=== PATIENT | male | born 1935 ===

== ENCOUNTER 2021-01-09 07:09 | Outpatient (CLI) | payer OTHER ==
[~2021-01-09 07:09] MED LIST: AVALIDE 150-12.1 TA1 PO; CORDARONE I.50 MG/ML; CORDARONE I.50 MG/ML IV; PRILOSEC10 MG PO; SYNTHROID75 MCG PO; TARKA 4/2401 BOTTLE; TARKA 4/2401 BOTTLE PO; ZOCOR20 MG PO
== END 2021-01-09 07:17 | disposition home or self-care (01) ==
LOC: LAB 07:09
PROVIDERS: ATTEND Internal Medicine Hematology & Oncology
DX: D63.8 Anemia in other chronic diseases classified elsewhere (principal); R79.89 Other specified abnormal findings of blood chemistry; I10 Essential (primary) hypertension; R74.02 Elevation of levels of lactic acid dehydrogenase [LDH]; K76.89 Other specified diseases of liver; D47.2 Monoclonal gammopathy; C90.00 Multiple myeloma not having achieved remission; R71.8 Other abnormality of red blood cells; R97.0 Elevated carcinoembryonic antigen [CEA]; R97.8 Other abnormal tumor markers; R97.20 Elevated prostate specific antigen [PSA]; G47.33 Obstructive sleep apnea (adult) (pediatric)

== ENCOUNTER → 2021-05-14 06:20 | Outpatient (CLI) | payer OTHER | END | disposition home or self-care (01) | LOC: LAB 06:20 | PROVIDERS: ATTEND Internal Medicine Hematology & Oncology | DX: D50.8 Other iron deficiency anemias (principal); R79.89 Other specified abnormal findings of blood chemistry; I10 Essential (primary) hypertension; R74.02 Elevation of levels of lactic acid dehydrogenase [LDH]; K76.89 Other specified diseases of liver; D47.2 Monoclonal gammopathy; C90.00 Multiple myeloma not having achieved remission; G47.33 Obstructive sleep apnea (adult) (pediatric); E11.9 Type 2 diabetes mellitus without complications; Z12.11 Encounter for screening for malignant neoplasm of colon; E03.8 Other specified hypothyroidism; N40.0 Benign prostatic hyperplasia without lower urinary tract symptoms; E78.49 Other hyperlipidemia ==

== ENCOUNTER 2021-09-13 07:08 | Outpatient (CLI) | payer OTHER | END 2021-09-13 07:09 | disposition home or self-care (01) | LOC: LAB 07:08 | PROVIDERS: ATTEND Internal Medicine Hematology & Oncology | DX: D50.8 Other iron deficiency anemias (principal); R79.89 Other specified abnormal findings of blood chemistry; I10 Essential (primary) hypertension; R74.02 Elevation of levels of lactic acid dehydrogenase [LDH]; K76.89 Other specified diseases of liver; D47.2 Monoclonal gammopathy; C90.00 Multiple myeloma not having achieved remission; D64.81 Anemia due to antineoplastic chemotherapy; D63.0 Anemia in neoplastic disease; G47.33 Obstructive sleep apnea (adult) (pediatric) ==

== ENCOUNTER 2022-02-04 06:32 | Outpatient (CLI) | payer OTHER | END 2022-02-04 06:38 | disposition home or self-care (01) | LOC: LAB 06:32 | PROVIDERS: ATTEND Internal Medicine Hematology & Oncology | DX: D50.8 Other iron deficiency anemias (principal); R79.9 Abnormal finding of blood chemistry, unspecified; I10 Essential (primary) hypertension; R74.02 Elevation of levels of lactic acid dehydrogenase [LDH]; K76.89 Other specified diseases of liver; D51.8 Other vitamin B12 deficiency anemias; D47.2 Monoclonal gammopathy; C90.00 Multiple myeloma not having achieved remission; D64.81 Anemia due to antineoplastic chemotherapy; D63.0 Anemia in neoplastic disease; G47.33 Obstructive sleep apnea (adult) (pediatric) ==

== ENCOUNTER → 2022-07-06 06:58 | Outpatient (CLI) | payer OTHER | END | disposition home or self-care (01) | LOC: LAB 06:58 | PROVIDERS: ATTEND Internal Medicine Hematology & Oncology | DX: D50.8 Other iron deficiency anemias (principal); R79.9 Abnormal finding of blood chemistry, unspecified; I10 Essential (primary) hypertension; R74.02 Elevation of levels of lactic acid dehydrogenase [LDH]; K76.89 Other specified diseases of liver; D47.2 Monoclonal gammopathy; C90.00 Multiple myeloma not having achieved remission; D64.81 Anemia due to antineoplastic chemotherapy; D63.0 Anemia in neoplastic disease; G47.33 Obstructive sleep apnea (adult) (pediatric) ==

== ENCOUNTER → 2022-10-17 07:38 | Outpatient (CLI) | payer OTHER | END | disposition home or self-care (01) | LOC: LAB 07:38 | PROVIDERS: ATTEND Internal Medicine Hematology & Oncology | DX: D50.8 Other iron deficiency anemias (principal); R79.9 Abnormal finding of blood chemistry, unspecified; I10 Essential (primary) hypertension; R74.02 Elevation of levels of lactic acid dehydrogenase [LDH]; K76.89 Other specified diseases of liver; D47.2 Monoclonal gammopathy; C90.00 Multiple myeloma not having achieved remission; G47.33 Obstructive sleep apnea (adult) (pediatric) ==

== ENCOUNTER 2023-02-13 07:04 | Outpatient (CLI) | payer OTHER | END 2023-02-13 07:06 | disposition home or self-care (01) | LOC: LAB 07:04 | PROVIDERS: ATTEND Internal Medicine Hematology & Oncology | DX: D50.8 Other iron deficiency anemias (principal); I10 Essential (primary) hypertension; R74.02 Elevation of levels of lactic acid dehydrogenase [LDH]; K76.89 Other specified diseases of liver; D47.2 Monoclonal gammopathy; C90.00 Multiple myeloma not having achieved remission; D64.81 Anemia due to antineoplastic chemotherapy; D63.0 Anemia in neoplastic disease; G47.33 Obstructive sleep apnea (adult) (pediatric) ==

== ENCOUNTER 2023-07-24 07:08 | Outpatient (CLI) | payer OTHER ==
[2023-07-24 09:43] LABS: ALBUMIN 3.2 gm/dL (3.4-5.0); BILIRUBIN TOTAL 0.34 mg/dL (0.3-1.2); CALCIUM 8.9 mg/dL (8.5-10.1); CREATININE SERUM 1.03 mg/dL (0.70-1.30); GFR 68.47; GLOBULINA 2.8 G/DL (2.4-3.5); POTASSIUM 4.68 mEq/L (3.5-5.1)
[2023-07-24 11:05] LABS: HEMATOCRIT 35.7 % (39.0-48.0); HEMOGLOBIN 11.6 g/dL (13-16.00); MEAN CELL VOLUME 99.5 fL (80.0-100.00); MEAN CORPUSCULAR HEMOGLOBIN 32.4 pg (27.00-32.0); MEAN CORPUSCULAR HGB CONC 32.5 g/dl (32.0-36.0); PLATELET COUNT 157 K/uL (150-450); RED BLOOD COUNT 3.59 M/uL (4.00-6.00); RED CELL DISTRIBUTION WIDTH 15.4 % (11.5-14.5)
== END 2023-07-24 07:10 | disposition home or self-care (01) ==
LOC: LAB 07:08
PROVIDERS: ATTEND Internal Medicine Hematology & Oncology
DX: D50.8 Other iron deficiency anemias (principal); I10 Essential (primary) hypertension; R74.02 Elevation of levels of lactic acid dehydrogenase [LDH]; K76.89 Other specified diseases of liver; D47.2 Monoclonal gammopathy; C90.00 Multiple myeloma not having achieved remission; D64.81 Anemia due to antineoplastic chemotherapy; D63.0 Anemia in neoplastic disease; G47.33 Obstructive sleep apnea (adult) (pediatric)

== ENCOUNTER 2023-12-04 07:18 | Outpatient (CLI) | payer OTHER ==
[2023-12-05 12:50] LABS: FOLIC ACID > 20.00 ng/ml (4.78-20)
== END 2023-12-04 07:24 | disposition home or self-care (01) ==
LOC: LAB 07:18
PROVIDERS: ATTEND Internal Medicine Hematology & Oncology
DX: C90.00 Multiple myeloma not having achieved remission (principal); D64.81 Anemia due to antineoplastic chemotherapy; D63.0 Anemia in neoplastic disease; D50.8 Other iron deficiency anemias; G47.33 Obstructive sleep apnea (adult) (pediatric)

== ENCOUNTER 2024-05-20 07:05 | Outpatient (CLI) | payer OTHER ==
[2024-05-20 09:52] LABS: HEMATOCRIT 33.2 % (39.0-48.0); HEMOGLOBIN 10.8 g/dL (13-16.00); MEAN CELL VOLUME 98.9 fL (80.0-100.00); MEAN CORPUSCULAR HEMOGLOBIN 32.1 pg (27.00-32.0); MEAN CORPUSCULAR HGB CONC 32.5 g/dl (32.0-36.0); PLATELET COUNT 192 K/uL (150-450); RED BLOOD COUNT 3.36 M/uL (4.00-6.00); RED CELL DISTRIBUTION WIDTH 15.3 % (11.5-14.5)
[2024-05-20 10:03] LABS: ALBUMIN 3.3 gm/dL (3.4-5.0); BILIRUBIN TOTAL 0.39 mg/dL (0.3-1.2); BILIRUBIN,CONJUGATED 0.11 mg/dL (0.0-0.2); BILIRUBIN,UNCONJUGATED 0.28 mg/dL (0.0-0.6); CALCIUM 9.3 mg/dL (8.5-10.1); CREATININE SERUM 1.31 mg/dL (0.70-1.30); GFR 51.76; POTASSIUM 5.05 mEq/L (3.5-5.1); TOTAL PROTEIN 6.7 gm/dL (6.4-8.2)
[2024-05-23 15:07] LABS: kappa lambda r 15.19 (0.26-1.65); lambda light 18.9 mg/L (5.7-26.3)
[2024-05-24 09:08] LABS: BETA-2-MICROGLOBULINA 4.8 mg/L (0.6-2.4)
[2024-05-24 13:06] LABS: IMM A 1016 mg/dL (61-437); IMM G 554 mg/dL (603-1613); IMM M 21 mg/dL (15-143); a:g ratio 1.1 (0.7-1.7); alpha 1 g 0.2 g/dL (0.0-0.4); alpha 2 0.7 g/dL (0.4-1.0); beta g 0.8 g/dL (0.7-1.3); gamma g 1.4 g/dL (0.4-1.8); globulin t 3.1 g/dL (2.2-3.9); m spike 0.7 g/dL (Not Observed); prot total 6.4 g/dL (6.0-8.5)
[2024-05-24 15:10] LABS: albu 27.3 % (.); alph 2 16.4 % (.); beta 24.7 % (.); gam 23.6 % (.); m spi 0 % (Not Observed); prot 13.4 mg/dL (Not Estab.)
== END 2024-05-20 07:11 | disposition home or self-care (01) ==
LOC: LAB 07:05
PROVIDERS: ATTEND Internal Medicine Hematology & Oncology
DX: C90.00 Multiple myeloma not having achieved remission (principal); D64.81 Anemia due to antineoplastic chemotherapy; D63.0 Anemia in neoplastic disease; D50.8 Other iron deficiency anemias; G47.33 Obstructive sleep apnea (adult) (pediatric); I10 Essential (primary) hypertension; R74.02 Elevation of levels of lactic acid dehydrogenase [LDH]; K76.89 Other specified diseases of liver; D47.2 Monoclonal gammopathy

== ENCOUNTER 2024-06-13 06:11 | Day surgery (SDC) | payer OTHER ==
[2024-06-07 12:42] LABS: PH,URINE 5.5 (5.0-8.0); URINE APPEARANCE Clear; URINE BILIRRUBIN Negative (NEGATIVE); URINE BLOOD Negative; URINE COLOR Yellow; URINE GLUCOSE Negative (NEGATIVE); URINE KETONE Negative (NEGATIVE); URINE LEUKOCYTE Negative; URINE NITRATE Negative; URINE PROTEIN Negative (NEGATIVE); URINE UROBILINOGEN 0.2 E.U./dl
[2024-06-07 12:45] LABS: URINE BACTERIA 113.3 uL (0.0-1933); URINE EPITHELIAL CELLS 4.1 uL (0.0-38.8); URINE RBC 5.4 uL (0.0-20.8); URINE WBC 4.7 uL (0.0-23.2)
[2024-06-07 12:56] LABS: HEMATOCRIT 33.1 % (39.0-48.0); HEMOGLOBIN 10.9 g/dL (13-16.00); MEAN CELL VOLUME 98.5 fL (80.0-100.00); MEAN CORPUSCULAR HEMOGLOBIN 32.5 pg (27.00-32.0); PLATELET COUNT 165 K/uL (150-450); RED BLOOD COUNT 3.36 M/uL (4.00-6.00); RED CELL DISTRIBUTION WIDTH 15.6 % (11.5-14.5)
[2024-06-07 12:58] LABS: INR 1.07; PARTIAL THROMBOPLASTIN TIME 28.5 SECONDS (22.0-34.0); PROTHROMBIN TIME 11.6 SECONDS (9.0-11.5)
[2024-06-07 13:00] LABS: ALBUMIN 3.7 gm/dL (3.4-5.0); BILIRUBIN TOTAL 0.42 mg/dL (0.3-1.2); CALCIUM 9.3 mg/dL (8.5-10.1); CREATININE SERUM 0.92 mg/dL (0.70-1.30); GFR 77.82; GLOBULINA 3.1 G/DL (2.4-3.5); POTASSIUM 5.85 mEq/L (3.5-5.1); TOTAL PROTEIN 6.8 gm/dL (6.4-8.2)
[2024-06-13] MEDS ORDERED: CEFAZOLIN SODIUM 1,000 MG VIAL ONE ×2 (10:40→13:41)
[2024-06-13] MEDS ORDERED: LIDOCAINE HCL 1% 20ML VIAL IJ ONE (12:03)
[2024-06-13] MEDS ORDERED: FAMOTIDINE/PF 20 MG/10 ML SYRINGE IV SCH (13:30)
[2024-06-13] MEDS ORDERED: CEFAZOLIN SODIUM 1,000 MG VIAL IV SCH (13:30)
[2024-06-13] MEDS ORDERED: FAMOTIDINE/PF 20 MG/2 ML VIAL ONE (13:41)
== END 2024-06-13 15:15 | disposition home or self-care (01) ==
LOC: CIR.AMB 06:11
PROVIDERS: ATTEND Specialist
DX: C90.00 Multiple myeloma not having achieved remission (principal); Z91.02 Food additives allergy status; I10 Essential (primary) hypertension; E03.9 Hypothyroidism, unspecified; G30.9 Alzheimer's disease, unspecified; F02.80 Dementia in other diseases classified elsewhere, unspecified severity, without behavioral disturbance, psychotic disturbance, mood disturbance, and anxiety

== ENCOUNTER → 2024-09-09 07:28 | Outpatient (CLI) | payer OTHER ==
[2024-09-09 09:02] LABS: HEMATOCRIT 33.1 % (39.0-48.0); HEMOGLOBIN 11.2 g/dL (13-16.00); MEAN CELL VOLUME 96.1 fL (80.0-100.00); MEAN CORPUSCULAR HEMOGLOBIN 32.5 pg (27.00-32.0); MEAN CORPUSCULAR HGB CONC 33.9 g/dl (32.0-36.0); PLATELET COUNT 175 K/uL (150-450); RED BLOOD COUNT 3.45 M/uL (4.00-6.00); RED CELL DISTRIBUTION WIDTH 16.3 % (11.5-14.5)
[2024-09-09 09:31] LABS: ALBUMIN 3.5 gm/dL (3.4-5.0); BILIRUBIN TOTAL 0.56 mg/dL (0.3-1.2); BILIRUBIN,CONJUGATED 0.16 mg/dL (0.0-0.2); BILIRUBIN,UNCONJUGATED 0.4 mg/dL (0.0-0.6); CALCIUM 9.5 mg/dL (8.5-10.1); CREATININE SERUM 0.96 mg/dL (0.70-1.30); GFR 74.09; POTASSIUM 4.73 mEq/L (3.5-5.1)
[2024-09-12 18:05] LABS: kappa lambda r 31.07 (0.26-1.65); kappa light 335.6 mg/L (3.3-19.4); lambda light 10.8 mg/L (5.7-26.3)
[2024-09-14 08:09] LABS: BETA-2-MICROGLOBULINA 3.7 mg/L (0.6-2.4)
[2024-09-14 14:05] LABS: IMM A 1244 mg/dL (61-437); IMM G 357 mg/dL (603-1613); IMM M 20 mg/dL (15-143)
[2024-09-15 10:06] LABS: a:g ratio 1.3 (0.7-1.7); albu 42.5 % (.); alp 8.4 % (.); alph 2 13.7 % (.); alpha 1 g 0.2 g/dL (0.0-0.4); alpha 2 0.7 g/dL (0.4-1.0); beta 21.4 % (.); beta g 0.8 g/dL (0.7-1.3); gamma g 1.2 g/dL (0.4-1.8); globulin t 2.9 g/dL (2.2-3.9); m spike 0.7 g/dL (Not Observed); prot 8.2 mg/dL (Not Estab.); prot total 6.7 g/dL (6.0-8.5)
== END | disposition home or self-care (01) ==
LOC: LAB 07:28
PROVIDERS: ATTEND Internal Medicine Hematology & Oncology
DX: C90.00 Multiple myeloma not having achieved remission (principal); D64.81 Anemia due to antineoplastic chemotherapy; D63.0 Anemia in neoplastic disease; D50.8 Other iron deficiency anemias; G47.33 Obstructive sleep apnea (adult) (pediatric); I10 Essential (primary) hypertension; R74.02 Elevation of levels of lactic acid dehydrogenase [LDH]; K76.89 Other specified diseases of liver; D47.2 Monoclonal gammopathy

== ENCOUNTER 2025-01-20 07:05 | Outpatient (CLI) | payer OTHER ==
[2025-01-20 08:57] LABS: HEMATOCRIT 32.6 % (39.0-48.0); HEMOGLOBIN 10.5 g/dL (13-16.00); MEAN CELL VOLUME 99.3 fL (80.0-100.00); MEAN CORPUSCULAR HEMOGLOBIN 31.9 pg (27.00-32.0); MEAN CORPUSCULAR HGB CONC 32.1 g/dl (32.0-36.0); RED BLOOD COUNT 3.29 M/uL (4.00-6.00); RED CELL DISTRIBUTION WIDTH 15.4 % (11.5-14.5)
[2025-01-20 08:59] LABS: PLATELET COUNT 97 K/uL (150-450)
[2025-01-20 09:36] LABS: ALBUMIN 3.4 gm/dL (3.4-5.0); BILIRUBIN TOTAL 0.47 mg/dL (0.3-1.2); BILIRUBIN,CONJUGATED 0.13 mg/dL (0.0-0.2); BILIRUBIN,UNCONJUGATED 0.34 mg/dL (0.0-0.6); CALCIUM 8.9 mg/dL (8.5-10.1); CREATININE SERUM 1.08 mg/dL (0.70-1.30); GFR 64.52; POTASSIUM 5.27 mEq/L (3.5-5.1); TOTAL PROTEIN 6.5 gm/dL (6.4-8.2)
[2025-01-21 11:40] LABS: FOLIC ACID > 20.00 ng/ml (4.78-20)
== END 2025-01-20 07:06 | disposition home or self-care (01) ==
LOC: LAB 07:05
PROVIDERS: ATTEND Internal Medicine Hematology & Oncology
DX: C90.00 Multiple myeloma not having achieved remission (principal); D64.81 Anemia due to antineoplastic chemotherapy; D63.0 Anemia in neoplastic disease; D50.8 Other iron deficiency anemias; G47.33 Obstructive sleep apnea (adult) (pediatric); I10 Essential (primary) hypertension; R74.02 Elevation of levels of lactic acid dehydrogenase [LDH]; K76.89 Other specified diseases of liver; D47.2 Monoclonal gammopathy

== ENCOUNTER 2025-05-15 09:01 | Outpatient (CLI) | payer OTHER ==
[2025-05-15 10:30] LABS: BASO % 1.0 % (0.1-1.2); EOS # 0.19 (0.04-0.54); EOS % 3.3 % (0.7-7.0); LYMPH # 2.06 (1.18-3.74); LYMPH % 35.7 % (19.3-53.1); MEAN PLATELET VOLUME 11.10 fl (9.4-12.4); MONO # 0.80 (0.24-0.82); NEUT # 2.64 (1.56-6.13); NEUT % 45.8 % (34.0-71.1); RED CELL DISTRIBUTION WIDTH 15.1 % (11.6-14.4)
[2025-05-15 10:31] LABS: MONO % 13.9 % (4.7-12.5)
[2025-05-15 11:27] LABS: ALT/SGPT 22.0 U/L (12-78); AST/SGOT 14.0 U/L (15-37); BILIRUBIN TOTAL 0.61 mg/dL (0.3-1.2); BILIRUBIN,CONJUGATED 0.16 mg/dL (0.0-0.2); BUN CREA RATIO 20.0 (7.0-25.0); CREATININE SERUM 0.94 mg/dL (0.70-1.30); GFR 75.74; GLUCOSE FASTING 84.0 mg/dL (65-100); LDH 163.0 U/L (87-241); OSMOLALITY SERUM 288.0 MOSM/KG (275-295)
[2025-05-16 08:53] LABS: MANUAL PLATELET COUNT 199
[2025-05-16 13:08] LABS: kappa lambda r 64.17 (0.26-1.65); kappa light 455.6 mg/L (3.3-19.4)
[2025-05-17 17:08] LABS: BETA-2-MICROGLOBULINA 4.5 mg/L (0.6-2.4); albu 31.1 % (.); alph 2 7.2 % (.); gam 21.3 % (.)
== END 2025-05-15 09:06 | disposition home or self-care (01) ==
LOC: LAB 09:01
PROVIDERS: ATTEND Internal Medicine Hematology & Oncology
DX: C90.00 Multiple myeloma not having achieved remission (principal); D64.81 Anemia due to antineoplastic chemotherapy; D63.0 Anemia in neoplastic disease; D50.8 Other iron deficiency anemias; G47.33 Obstructive sleep apnea (adult) (pediatric); I10 Essential (primary) hypertension; R74.02 Elevation of levels of lactic acid dehydrogenase [LDH]; K76.89 Other specified diseases of liver; D47.2 Monoclonal gammopathy